=== PATIENT | male | born 1970 | race Caucasian/White ===

== ENCOUNTER 2017-01-14 16:57 | Emergency (ER) | payer BC ==
[2017-01-14] MEDS ORDERED: IBUPROFEN 600 MG TABLET PO ONE (17:06)
[2017-01-14] MEDS ORDERED: OXYCODONE-ACETAMINOPHEN 5-325 MG TABLET PO ONE ×2 (17:07→18:02)
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
[2017-01-14] MEDS ORDERED: CEPHALEXIN 500 MG CAPSULE PO ONE (18:02)
[2017-01-14 18:17] VITALS: BP 157/79
== END 2017-01-14 18:22 | disposition home or self-care (01) ==
LOC: ER 16:57
DX: S61.402A Unspecified open wound of left hand, initial encounter (principal); R20.0 Anesthesia of skin; W32.0XXA Accidental handgun discharge, initial encounter; Y93.89 Activity, other specified; I10 Essential (primary) hypertension
CPT/HCPCS: 99283